=== PATIENT | male | born 1955 | race Caucasian/White ===

== ENCOUNTER 2020-12-21 18:44 | Emergency (ER) | payer MEDICARE ==
[2020-12-21] MEDS ORDERED: Ativan 1 MG PO ONE (19:21)
[2020-12-21] MEDS ORDERED: Sodium Chloride 0.9% 1000 ML 1,000 ML IV STA (19:21)
[2020-12-21] MEDS ORDERED: Sodium Chloride 0.9% 1000 ML 1,000 ML ONE (19:27)
[2020-12-21] MEDS ORDERED: Ativan 1 MG ONE (19:27)
--- NOTE | 2020-12-21 19:27 | ERPHSYRPT ---
- History of Present Illness Time Seen by Provider: 12/21/20 18:46 Source: patient, EMS Exam Limitations: other Patient Subjective Stated Complaint: General- back pain Triage Nursing Assessment: Patient brought into ED per EMS and transferred to be d with assist of 3. Patient A+O x3. Patient's skin pink, warm and dry. Patient states he called EMS due to his back pain 10/10 and a feeling of not going to wake up when he sleeps. Physician History: 65 years old male with history of COPD, hypertension, hyperlipidemia, chronic back pain on Dilaudid pump, atrial fibrillation, anxiety, depression presented in the ER with chief complaint of generalized weakness fatigue and tiredness. Patient report he has dryness of the mouth and feels thirsty. He has chronic back pain which is fairly controlled with pain pump and occasionally has breakthrough pain. Patient reports his pain is not worse than usual but he is thinking if he sleeps he will not be able to wake up. Feels as if everything is closing on him. When asked why he could not give me a straight answer. Patient states "I have a lot of stress going on". He denies any chest pain palpitations or shortness of breath but more than what she has at his baseline. No abdominal pain nausea vomiting or diarrhea but has have constipation and last bowel movement was 4 days ago. Denies any weakness in the lower extremities. Denies any recent fall or trauma. Denies any headache numbness tingling or focal weakness. Timing/Duration: today, hour(s) (1), sudden Severity: moderate Modifying Factors: Improves With: nothing Associated Symptoms: shortness of breath, weakness, No chest pain Allergies/Adverse Reactions: ibuprofen Allergy (Verified 12/21/20 18:51) mephobarbital [From Mebaral] Allergy (Verified 12/21/20 18:51) Hx Influenza Vaccination/Date Given: No Hx Pneumococcal Vaccination/Date Given: No Immunizations Up to Date: Yes Travel Risk - International Travel Have you traveled outside of the country in past 3 weeks: No - Coronavirus Screening Are you exhibiting any of the following symptoms?: No Close contact with a COVID-19 positive Pt in past 14-21 Days: No - Vaccine Status Have you recieved a Covid-19 vaccination: No - Review of Systems Constitutional: Fatigue, Weakness Eyes: No Symptoms, Photophobia Ears, Nose, & Throat: No Symptoms Respiratory: Cough Cardiac: No Symptoms Abdominal/Gastrointestinal: Constipation Genitourinary Symptoms: No Symptoms Musculoskeletal: Back Pain, Myalgias Skin: No Symptoms Neurological: No Symptoms Psychological: Anxiety, Depression, No Drug Abuse Endocrine: No Symptoms Hematologic/Lymphatic: No Symptoms Immunological/Allergic: No Symptoms - Past Medical History Pertinent Past Medical History: Yes Neurological History: No Pertinent History ENT History: No Pertinent History Cardiac History: Hypertension Endocrine Medical History: Diabetes Type II Other Medical History: Patient poor historian - Past Surgical History Other Surgical History: Implanted dilaudid pain pump due to back fusion; patient poor historian - Social History Smoking Status: Never smoker Exposure to second hand smoke: Yes Drug Use: none Patient Lives Alone: No - Nursing Vital Signs Nursing Vital Signs: Initial Vital Signs Temperature 97.2 F 12/21/20 18:52 Pulse Rate 101 H 12/21/20 18:52 Respiratory Rate 19 12/21/20 18:52 Blood Pressure 146/96 12/21/20 18:52 O2 Sat by Pulse Oximetry 99 12/21/20 18:52 Pain Scale Pain Intensity 6 - Physical Exam General Appearance: no apparent distress, alert, anxiety Eye Exam: PERRL/EOMI, eyes nml inspection Ears, Nose, Throat Exam: normal ENT inspection, pharynx normal Neck Exam: normal inspection, non-tender, supple, full range of motion Respiratory Exam: normal breath sounds, lungs clear Cardiovascular Exam: regular rate/rhythm, normal heart sounds Gastrointestinal/Abdomen Exam: soft, normal bowel sounds Back Exam: normal inspection, normal range of motion, No CVA tenderness Extremity Exam: normal inspection, normal range of motion Neurologic Exam: alert, oriented x 3, cooperative, door opener II-XII nml as tested, nml cerebellar function Skin Exam: normal color SpO2 Interpretation: normal SpO2: 99 O2 Delivery: Room Air - Course EKG Interpreted by Me: RATE (100), Sinus Rhythm, Left Conway Deviation, NORMAL INTERVALS, Other (Atrial premature complexes, left bundle branch block. ) Ordered Tests: Active Orders 24 hr Category Date Time Status CHEST 1 VIEW (PORTABLE) Stat Exams 12/21/20 19:21 Taken BLOOD CULTURE Stat Lab 12/21/20 19:40 Received CBC W DIFF Stat Lab 12/21/20 19:20 Completed CMP Stat Lab 12/21/20 19:20 Completed Lactic Acid Stat Lab 12/21/20 19:21 Completed MAGNESIUM Stat Lab 12/21/20 19:20 Completed NT PRO BNP Stat Lab 12/21/20 19:20 Completed TROPONIN Q3H Lab 12/21/20 19:30 Completed UA W/RFX UR CULTURE Stat Lab 12/21/20 20:05 Completed Urine Triage Profile Stat Lab 12/21/20 20:05 Completed Medication Summary Discontinued Medications Generic Name Dose Route Start Last Admin Trade Name Krunalq PRN Reason Stop Dose Admin Sodium Chloride 1,000 mls @ 999 mls/hr 12/21/20 19:21 12/21/20 21:33 Sodium Chloride 0.9% 1000 Ml IV 12/21/20 20:21 Infused .Q1H1M STA Infusion Sodium Chloride Confirm 12/21/20 19:27 Sodium Chloride 0.9% 1000 Ml Administered 12/21/20 19:28 Dose 1,000 mls @ ud .ROUTE .STK-MED ONE Ceftriaxone Sodium/Dextrose 1 g in 50 mls @ 100 mls/hr 12/21/20 21:35 12/21/20 22:12 Rocephin 1 Gm-D5w 50 Ml Bag IV 12/21/20 22:04 Infused STAT STA Infusion Ceftriaxone Sodium/Dextrose Confirm 12/21/20 21:39 Rocephin 1 Gm-D5w 50 Ml Bag Administered 12/21/20 21:40 Dose 1 g in 50 mls @ ud IV .STK-MED ONE Lorazepam 1 mg 12/21/20 19:21 12/21/20 19:28 Ativan 1 Mg PO 12/21/20 19:22 1 mg STAT ONE Administration Lorazepam Confirm 12/21/20 19:27 Ativan 1 Mg Administered 12/21/20 19:28 Dose 1 mg .ROUTE .STK-MED ONE Lab/Rad Data: Laboratory Result Diagrams 12/21/20 19:20 12/21/20 19:20 Laboratory Results 12/21/20 12/21/20 12/21/20 Range/Units 20:05 20:05 19:30 WBC (4.0-10.5) K/mm3 RBC (4.1-5.6) M/mm3 Hgb (12.5-18.0) gm/dl Hct (42-50) % MCV (78-100) fl MCH (26-32) pg MCHC (32-36) g/dl RDW (11.5-14.0) % Plt Count (150-450) K/mm3 MPV (7.5-11.0) fl Gran % (36.0-66.0) % Eos # (Auto) (0-0.5) Absolute Lymphs (auto) (1.0-4.6) Absolute Monos (auto) (0.0-1.3) Lymphocytes % (24.0-44.0) % Monocytes % (0.0-12.0) % Eosinophils % (0.00-5.0) % Basophils % (0.0-0.4) % Absolute Granulocytes (1.4-6.9) Basophils # (0-0.4) Sodium (137-145) mmol/L Potassium (3.5-5.1) mmol/L Chloride (98-107) mmol/L Carbon Dioxide (22-30) mmol/L Anion Gap (5-15) MEQ/L BUN (9-20) mg/dL Creatinine (0.66-1.25) mg/dL Estimated GFR ML/MIN Glucose (74-106) mg/dL Lactic Acid (0.4-2.0) Calcium (8.4-10.2) mg/dL Magnesium (1.6-2.3) mg/dL Total Bilirubin (0.2-1.3) mg/dL AST (17-59) U/L ALT (0-50) U/L Alkaline Phosphatase (38-126) U/L Troponin I < 0.012 (0.000-0.034) ng/mL NT-Pro-B Natriuret Pep (0-900) pg/mL Serum Total Protein (6.3-8.2) g/dL Albumin (3.5-5.0) g/dL Urine Color YELLOW (YELLOW) Urine Appearance CLEAR (CLEAR) Urine pH 6.0 (5-6) Ur Specific [place] 1.018 (1.005-1.025) Urine Protein NEGATIVE (Negative) Urine Ketones NEGATIVE (NEGATIVE) Urine Blood NEGATIVE (0-5) Jose A/ul Urine Nitrite NEGATIVE (NEGATIVE) Urine Bilirubin NEGATIVE (NEGATIVE) Urine Urobilinogen 4 (0-1) mg/dL Ur Leukocyte Esterase SMALL (NEGATIVE) Urine WBC (Auto) 11-15 (0-5) /HPF Urine RBC (Auto) NONE (0-2) /HPF U Hyaline Cast (Auto) 0-2 (0-2) /LPF U Epithel Cells (Auto) RARE (FEW) /HPF Urine Bacteria (Auto) NONE (NEGATIVE) /HPF Urine Mucus (Auto) SLIGHT (NEGATIVE) /HPF Urine Culture Reflexed NO (NO) Urine Glucose NEGATIVE (NEGATIVE) mg/dL Urine Opiates Level POSITIVE (NEGATIVE) Ur Methadone NEGATIVE (NEGATIVE) Urine Barbiturates NEGATIVE (NEGATIVE) Ur Phencyclidine (PCP) NEGATIVE (NEGATIVE) Urine Amphetamine NEGATIVE (NEGATIVE) U Benzodiazepine Level NEGATIVE (NEGATIVE) Urine Cocaine NEGATIVE (NEGATIVE) Urine Marijuana (THC) NEGATIVE (NEGATIVE) 12/21/20 12/21/20 12/21/20 Range/Units 19:21 19:20 19:20 WBC 10.2 (4.0-10.5) K/mm3 RBC 3.90 L (4.1-5.6) M/mm3 Hgb 10.9 L (12.5-18.0) gm/dl Hct 35.4 L (42-50) % MCV 90.8 (78-100) fl MCH 27.9 (26-32) pg MCHC 30.8 L (32-36) g/dl RDW 14.3 H (11.5-14.0) % Plt Count 257 (150-450) K/mm3 MPV 12.2 H (7.5-11.0) fl Gran % 67.3 H (36.0-66.0) % Eos # (Auto) 0.49 (0-0.5) Absolute Lymphs (auto) 1.79 (1.0-4.6) Absolute Monos (auto) 1.03 (0.0-1.3) Lymphocytes % 17.6 L (24.0-44.0) % Monocytes % 10.1 (0.0-12.0) % Eosinophils % 4.8 (0.00-5.0) % Basophils % 0.2 (0.0-0.4) % Absolute Granulocytes 6.82 (1.4-6.9) Basophils # 0.02 (0-0.4) Sodium 136 L (137-145) mmol/L Potassium 4.3 (3.5-5.1) mmol/L Chloride 99 (98-107) mmol/L Carbon Dioxide 28 (22-30) mmol/L Anion Gap 13.4 (5-15) MEQ/L BUN 25 H (9-20) mg/dL Creatinine 1.89 H (0.66-1.25) mg/dL Estimated GFR 38.4 ML/MIN Glucose 100 (74-106) mg/dL Lactic Acid 1.6 (0.4-2.0) Calcium 8.9 (8.4-10.2) mg/dL Magnesium 2.1 (1.6-2.3) mg/dL Total Bilirubin 0.50 (0.2-1.3) mg/dL AST 24 (17-59) U/L ALT 21 (0-50) U/L Alkaline Phosphatase 115 (38-126) U/L Troponin I (0.000-0.034) ng/mL NT-Pro-B Natriuret Pep 785 (0-900) pg/mL Serum Total Protein 6.9 (6.3-8.2) g/dL Albumin 4.0 (3.5-5.0) g/dL Urine Color (YELLOW) Urine Appearance (CLEAR) Urine pH (5-6) Ur Specific [place] (1.005-1.025) Urine Protein (Negative) Urine Ketones (NEGATIVE) Urine Blood (0-5) Jose A/ul Urine Nitrite (NEGATIVE) Urine Bilirubin (NEGATIVE) Urine Urobilinogen (0-1) mg/dL Ur Leukocyte Esterase (NEGATIVE) Urine WBC (Auto) (0-5) /HPF Urine RBC (Auto) (0-2) /HPF U Hyaline Cast (Auto) (0-2) /LPF U Epithel Cells (Auto) (FEW) /HPF Urine Bacteria (Auto) (NEGATIVE) /HPF Urine Mucus (Auto) (NEGATIVE) /HPF Urine Culture Reflexed (NO) Urine Glucose (NEGATIVE) mg/dL Urine Opiates Level (NEGATIVE) Ur Methadone (NEGATIVE) Urine Barbiturates (NEGATIVE) Ur Phencyclidine (PCP) (NEGATIVE) Urine Amphetamine (NEGATIVE) U Benzodiazepine Level (NEGATIVE) Urine Cocaine (NEGATIVE) Urine Marijuana (THC) (NEGATIVE) - Progress Progress: improved, re-examined Progress Note: 12/21/20 21:55 65 years old is evaluated for generalized weakness fatigue and anxiety symptoms. He is given Ativan orally in here, on reevaluation feeling much better. Patient denies suicidal or homicidal ideations on repeated evaluations and asking question different ways. Patient later reports that he was very anxious and feeling back to his baseline now. He is given fluid bolus as well. He has chronic kidney disease according to patient and his creatinine is 1.89. He does have UTI and given a dose of Rocephin in here. Chest x-ray negative for any acute cardiopulmonary findings. EKG did not show any acute ST elevation and has negative troponins. Grossly unremarkable work-up otherwise. I have discussed with Dr. Hernández pollution control chemist for hospitalist, reviewed patient history work-up, plan of care and do not think patient needs to be admitted. I have discussed with patient in detail hen he wants to go home I think this is reasonable. He would be discharged on Keflex and outpatient follow-up. Discussed signs symptoms of worsening including suicidal/homicidal ideations intent/thoughts and needing to return to ER which he seems understanding. Discussed with .: Meghann Will see patient in: hospital (observation) Counseled pt/family regarding: lab results, diagnosis, need for follow-up, rad results - Departure Departure Disposition: Home Clinical Impression: Anxiety attack, Acute UTI, General weakness Condition: Stable Critical Care Time: No Referrals: DOCTOR,NO FAMILY [Primary Care Provider] - SURI HERNÁNDEZ [ACTIVE STAFF] - (1-2 days for reevaluation) Instructions: Anxiety, Adult (DC), Generalized Weakness (DC) Additional Instructions: Drink plenty of fluids. Follow-up with your primary care for reevaluation. Return to ER for worsening symptoms of anxiety or if have any suicidal/homicidal thoughts intent or plan or call 911. Continue with antibiotics for UTI. Prescriptions: Cephalexin Mh 500 mg [Keflex 500 mg] 500 mg PO TID #21 capsule
[2020-12-21 19:32] LABS: Absolute Neutrophil Ct (ANC) 6.82 (1.4-6.9); BASOPHIL % 0.2 % (0.0-0.4); Basophil (Absolute #) 0.02 (0-0.4); Eosinophil % 4.8 % (0.00-5.0); Eosinophil (Absolute #) 0.49 (0-0.5); Hematocrit 35.4 % (42-50); Hemoglobin 10.9 gm/dl (12.5-18.0); Lymphocyte (Absolute #) 1.79 (1.0-4.6); Lymphocytes % 17.6 % (24.0-44.0); Mean Cell Volume 90.8 fl (78-100); Mean Corpuscular Hemoglobin 27.9 pg (26-32); Mean Corpuscular Hgb Concent. 30.8 g/dl (32-36); Mean Platelet Volume 12.2 fl (7.5-11.0); Monocyte (Absolute #) 1.03 (0.0-1.3); Monocytes % 10.1 % (0.0-12.0); Neutrophil % 67.3 % (36.0-66.0); Platelet Count 257 K/mm3 (150-450); Red Cell Distribution Width 14.3 % (11.5-14.0); White Blood Count 10.2 K/mm3 (4.0-10.5)
[2020-12-21 19:47] LABS: ANION GAP 13.4 MEQ/L (5-15); BILIRUBIN,TOTAL 0.5 mg/dL (0.2-1.3); Calcium 8.9 mg/dL (8.4-10.2); Creatinine 1 1.89 mg/dL (0.66-1.25); EST GLOMERULAR FILTRATION RATE 38.4 ML/MIN; MAGNESIUM 2.1 mg/dL (1.6-2.3); Potassium 4.3 mmol/L (3.5-5.1); Total Protein 6.9 g/dL (6.3-8.2)
[2020-12-21 20:35] LABS: Appearance CLEAR (CLEAR); Bilirubin NEGATIVE (NEGATIVE); Blood NEGATIVE Ery/ul (0-5); Epithelial Cells RARE /HPF (FEW); Glucose NEGATIVE (NEGATIVE); Hyaline Casts 0-2 /LPF (0-2); Ketones NEGATIVE (NEGATIVE); Leukocyte Esterase SMALL (NEGATIVE); Mucus SLIGHT /HPF (NEGATIVE); Nitrite NEGATIVE (NEGATIVE); Protein,Urine Dip NEGATIVE (Negative); Specific Gravity 1.018 (1.005-1.025); Urobilinogen 4 mg/dL (0-1)
[2020-12-21 20:48] LABS: Amphetamine,Urine NEGATIVE (NEGATIVE); Barbiturate,Urine NEGATIVE (NEGATIVE); Benzodiazepine,Urine NEGATIVE (NEGATIVE); Cocaine,Urine NEGATIVE (NEGATIVE); Methadone,Urine NEGATIVE (NEGATIVE); Opiate,Urine POSITIVE (NEGATIVE); PCP,Urine NEGATIVE (NEGATIVE); THC,Urine NEGATIVE (NEGATIVE)
[2020-12-21] MEDS ORDERED: ROCEPHIN 1 Gm-D5w 50 ml Bag** 1 G/50 ML IVPB IV STA (21:35)
[2020-12-21] MEDS ORDERED: ROCEPHIN 1 Gm-D5w 50 ml Bag** 1 G/50 ML IVPB IV ONE (21:39)
[2020-12-21 22:04] VITALS: BP 152/115; PULSE 99
[2020-12-21 22:57] VITALS: O2SAT 99
--- NOTE | 2020-12-22 08:40 | XRAY ---
Indication: Weakness. Comparison: None Portable chest clear with a few incidental calcified granulomas. Heart borderline enlarged with right AICD. Bony thorax intact with osteopenia and degenerative changes. Impression: Negative chest with chronic features.
== END 2020-12-21 22:14 | disposition home or self-care (01) ==
LOC: ED 18:44
DX: F41.9 Anxiety disorder, unspecified (principal); N39.0 Urinary tract infection, site not specified; R53.1 Weakness; J44.9 Chronic obstructive pulmonary disease, unspecified; I10 Essential (primary) hypertension; E78.5 Hyperlipidemia, unspecified; K59.00 Constipation, unspecified; E11.9 Type 2 diabetes mellitus without complications
CPT/HCPCS: 36000; 36415; 71045; 80053; 80307; 81001; 83605; 83735; 83880; 84484; 85025; 87040; 96360; 96365; 96374; 99284; J0696; A9270-GY